=== PATIENT | female | born 1945 | race Caucasian/White ===

== ENCOUNTER → 2018-10-11 09:31 | Outpatient (CLI) | payer MEDICARE, SELFPAY ==
--- NOTE | 2018-10-11 | US_ITS ---
US thyroid HISTORY: Thyroid nodule ORDERING PHYSICIAN: Nathan Reece MD PATIENT AGE: 73 years Comparison: None FINDINGS: The right lobe is 4 x 1.8 x 2.6 cm. The left lobe is 5.1 x 1.5 x 1.5 cm. There are multiple nodules on the right including a hypoechoic nodule upper pole at 6 mm, 16 x 12 mm solid appearing nodule in the mid polar region, and a 27 x 18 mm solid-appearing nodule in the mid to lower pole. This nodule was targeted for biopsy. On the left there is a 14 x 12 mm mixed cystic and solid nodule in the upper pole, 4 mm hypoechoic nodule in the mid polar region, and multiple hypoechoic nodules in the lower pole. IMPRESSION: Multinodular goiter. Dominant nodule is present in the lower pole on the right and 2.7 x 1.8 cm which was targeted for biopsy
--- NOTE | 2018-10-11 09:45 | US_ITS ---
US FNA Thyroid HISTORY: Multiple thyroid nodules with dominant nodule in the lower pole on the right. ITS.REASON: RT THYROID NEOPLASM ORDERING PHYSICIAN: Nathan Reece MD PATIENT AGE: 73 years COMPARISON: None TECHNIQUE: Following obtaining informed consent, using aseptic technique and local anesthesia with buffered lidocaine, fine-needle aspiration was performed of the nodule of interest using sonographic guidance. 3 passes were made into the nodule with a 25-gauge needle. There was felt to be adequate specimen visible within the aspirate. Specimen was given to cytology. The patient tolerated the procedure well without evidence of immediate complications and left the ultrasound suite in stable condition. CYTOLOGY:Nondiagnostic specimen, sparsely cellular and repair variably sized follicular groups with scant colloid insufficiently characterized the nodule IMPRESSION: Uneventful ultrasound-guided fine-needle aspiration of the right thyroid nodule. Specimen was nondiagnostic
== END ==
PROVIDERS: PCP Nurse Practitioner; Visit Provider Otolaryngology
DX: D34 Benign neoplasm of thyroid gland (principal)
CPT/HCPCS: 10005; 76536

== ENCOUNTER → 2022-11-06 10:06 | Outpatient (CLI) | payer MEDICARE, SELFPAY | LOC: RT 10:07 | PROVIDERS: PCP General Practice; Visit Provider Physician Assistant | DX: R01.1 Cardiac murmur, unspecified (principal) | CPT/HCPCS: 93306 ==

== ENCOUNTER → 2023-05-05 11:08 | Outpatient (CLI) | payer MEDICARE, SELFPAY ==
[2023-05-05 11:33] LABS: Basophils % 0.8 % (0.1-2.0); Eosinophils # 0.3 K/mm3 (0.0-0.4); Eosinophils % 8.3 % (0.1-12.0); Hematocrit 35.6 % (37.0-47.0); Hemoglobin 11.9 g/dL (12.2-16.2); Lymphocytes # 1.1 K/mm3 (0.7-4.5); Lymphocytes % 27.6 % (10-50); Mean Corpuscular HGB Conc 33.5 g/dL (31.8-35.4); Mean Corpuscular Hemoglobin 27.2 pg (27.0-31.2); Mean Corpuscular Volume 81.2 fl (81-99); Mean Platelet Volume 7.7 fl (7.4-10.4); Monocytes # 0.4 K/mm3 (0.1-1.0); Neutrophils # 2.2 K/mm3 (1.8-7.8); Neutrophils % 54.4 % (37.0-80.0); Platelet Count 247 K/mm3 (142-424); Red Blood Count 4.38 M/mm3 (4.20-5.40); Red Cell Distribution Width 13.9 % (11.5-17.5); White Blood Count 4.1 K/mm3 (4.8-10.8)
[2023-05-05 12:08] LABS: Alanine Aminotransferase 31 U/L (12-78); Albumin Level 4.6 g/dl (3.5-5.0); Alkaline Phosphatase 127 U/L (38-126); Anion Gap 20.1 mEq/L (5-15); Aspartate Amino Transferase 28 U/L (14-36); Bilirubin,Direct 0.1 mg/dl (0.0-0.4); Bilirubin,Indirect 0.2 mg/dL (0.0-0.9); Bilirubin,Total 0.3 mg/dl (0.2-1.3); Bilirubin,Unconjugated 0.2 mg/dL (0.0-1.1); Blood Urea Nitrogen 30 mg/dl (7-17); Calcium 9.3 mg/dl (8.4-10.2); Carbon Dioxide 19 mmol/L (22.0-30.0); Chloride 104 mmol/L (98-107); Chol/HDL Ratio 2.7 (1-3.5); Cholesterol 124 mg/dl (140-200); Estimated Glomerular Filt Rate 69 ml/min (>60); GFR (African American) 84 ML/MIN (>60); Glucose 298 mg/dl (74-100); HDL Cholesterol 46 mg/dl (40-60); Magnesium 1.9 mg/dl (1.6-2.3); Potassium 4.1 mmoL/L (3.5-5.1); Sodium 139 mmol/L (136-145); Total Protein,Serum 7.2 g/dl (6.3-8.2); Triglycerides 216 mg/dl (30-150); VLDL Cholesterol 43 mg/dL (0-40)
[2023-05-05 12:18] LABS: Direct LDL Cholesterol 42.59 mg/dL (100-129)
[2023-05-05 12:38] LABS: Thyroid Stimulating Hormone 0.32 uIU/mL (0.465-4.68)
[2023-05-05 12:53] LABS: Free T4 (Free Thyroxine) 1.26 ng/dl (0.78-2.19)
== END ==
PROVIDERS: PCP General Practice; Visit Provider Internal Medicine
DX: E78.5 Hyperlipidemia, unspecified (principal); I11.9 Hypertensive heart disease without heart failure; I25.10 Atherosclerotic heart disease of native coronary artery without angina pectoris; R94.31 Abnormal electrocardiogram [ECG] [EKG]
CPT/HCPCS: 36415; 80048; 80061; 80076; 83735; 84439; 84443; 85025

== ENCOUNTER 2024-08-30 11:03 | Outpatient (CLI) | payer MEDICARE, SELFPAY ==
--- NOTE | 2024-08-30 | CA_ITS ---
APPROVED REPORT Exam: Pharmacologic Technologist: Francie Sweet Ht: 5 ft 4 in Wt: 179 lbs BSA: 1.87 m2 HR: 55 bpm BP: 168/55 mmHg Stress Test Details Test: Lexiscan HR Resting HR: 55 bpm Max Heart Rate (APMHR): 140.538245 bpm Max HR Achieved: 81 bpm Target HR (85% APMHR): 119.075377 bpm % of APMHR: 57.86 Recovery HR: 75 bpm BP Resting BP: 168.0/55.0 mmHg Max BP: 168.0/55.0 mmHg Recovery BP: 132.0/65.0 mmHg ECG Stress ECG Conclusion Symptoms: Shortness of breath with Lexiscan. Arrhythmias/Ectopy: None ST-T Changes: Unremarkable with Lexiscan infusion. Electronically signed by : Rox Mayer MD 08/31/2024 00:01:00
--- NOTE | 2024-08-30 11:04 | NM_ITS ---
APPROVED REPORT Exam: Nuclear Stress Test Indication: cad, 1 stent, hypertension, diabetes, hyperlipidemia, fm hx Patient Location: Outpatient Stress Tech: Francie Sweet MD Tech:Zonia Greene ALAINA RT (R)(N)(M) Ht: 5 ft 4 in Wt: 179 lbs Bra Size: B HR: 55 bpm BP: 168/55 mmHg BSA: 1.87 m2 TID: 1.02 BMI: 30.7 History: cad, 1 stent, hypertension, diabetes, hyperlipidemia, fm hx Procedure: Patient received 0.4 mg of intravenous Lexiscan, resting heart rate 55 bpm, resting blood pressure 168/55 mmHg, with Lexiscan maximum heart rate achieved was 81 bpm which is % of the maximum predicted heart rate and blood pressure was 130/53 mmHg. With Lexiscan, patient denied any complaint of chest pain. Cardiac Stress and Resting SPECT Images: Cardiac Stress and Resting SPECT images were obtained using technetium 99m Myoview 31.2 mCi stress and 10.44 mCi at rest. Resting and stress imaging in supine and prone positions demonstrate a small sized, moderate, fixed perfusion defect in the apical LV wall. Gated imaging demonstrates normal global and regional LV systolic function. LVEF is calculated at 59%. Conclusion: Small sized, moderate, fixed perfusion defect in the apical LV wall. Gated imaging demonstrates normal global and regional LV systolic function. LVEF is calculated at 59%. Electronically signed by : Rox Mayer MD 08/31/2024 14:06:44
[2024-08-30] MEDS: SODIUM CHLORIDE 0.9% 10ML SYR (RAD ONLY) 10 ML IV ×2 (11:20→13:05)
[2024-08-30] MEDS: REGADENOSON 0.4MG/5ML SYRINGE 0.4 MG IV (13:05)
[2024-08-30] MEDS: ISOTOPE MYOVIEW (PER STUDY) 1 DOSE IV (13:11)
== END 2024-08-30 23:59 | disposition home or self-care (01) ==
LOC: RAD 11:04
PROVIDERS: Visit Provider Physician Assistant
DX: I25.10 Atherosclerotic heart disease of native coronary artery without angina pectoris (principal)
CPT/HCPCS: 78452; 93017; 93018; A9502; J2785